=== PATIENT | female | born 1960 | race Caucasian/White ===

== ENCOUNTER → 2020-06-08 21:26 | Outpatient (CLI) | payer OTHER, SELFPAY | PROVIDERS: Visit Provider Nurse Practitioner | DX: R35.0 Frequency of micturition (principal) | CPT/HCPCS: 87086; 87088 ==

== ENCOUNTER 2022-01-18 22:33 | Outpatient (CLI) | payer OTHER, SELFPAY ==
[2022-01-18 22:48] LABS: Absolute Lymphocyte Count 2.53 X10^3/uL (0.83-4.51); Absolute Neutrophil Count 3.4 X10^3/uL (2.0-7.7); Basophil# 0.04 X10^3/uL; Basophil% 0.6 % (0-1); Eosinophil# 0.11 X10^3/uL; Eosinophils% 1.7 % (0-5); Hematocrit 38.3 % (37-47); Hemoglobin 12.7 g/dL (12.0-15.0); Lymphocyte # 2.53 X10^3/ul (0.83-4.51); Lymphocyte % 38.4 % (19-41); Mean Corp Hgb Conc 33.2 g/dL (32-36); Mean Corpuscular Hgb 29.5 pg (27.0-32.0); Mean Corpuscular Volume 89.1 fL (81-99); Mean Platelet Vol. 11.4 fl (6.2-12.0); Monocyte% 7.6 % (0-10); NRBC Flagged by Analyzer 0 % (0-5); Neutrophil # 3.38 X10^3/uL (2.7-7.7); Neutrophil % 51.4 % (47-70); Platelet Count 257 K/mm3 (150-450); RBC Distribution Width CV 13.3 % (11.6-14.6); RBC Distribution Width SD 43.2 fl (35.1-43.9); White Blood Count 6.6 K/mm3 (4.4-11.0)
[2022-01-18 22:58] LABS: ALB/GLOB Ratio 1.2 RATIO (0.9-2.4); AST(SGOT) 22 U/L (15-37); Alanine Aminotransfer ALT/SGPT 26 U/L (13-56); Albumin, Serum 4.1 g/dL (3.2-5.0); Alkaline Phosphatase 83 U/L (45-117); Anion Gap 8 (5-15); BUN 15 mg/dL (7-18); BUN/Creat Ratio 19.1 RATIO (10-20); Calcium,Total 9.5 mg/dL (8.5-10.1); Chloride 99 mmol/L (98-107); Cholesterol 254 mg/dL (200); Creatinine, Serum 0.79 mg/dL (0.55-1.02); EST Glomerular Filtration Rate 79 mL/min (>60); Est Glom Filt Rate - Afr Amer 96 mL/min (>60); Globulin 3.5 g/dL (2.2-4.2); Glucose 88 mg/dL (74-106); High Density Lipoprotein 108 mg/dL; Potassium 3.9 mmol/L (3.5-5.1); Protein, Total 7.6 g/dL (6.4-8.2); Sodium Level 133 mmol/L (136-145); Triglycerides 66 mg/dL; Very Low Density Lipoprotein 13 mg/dL (5-40)
== END 2022-01-18 23:59 | disposition home or self-care (01) ==
PROVIDERS: PCP Nurse Practitioner; Referring Provider Nurse Practitioner; Visit Provider Nurse Practitioner
DX: Z00.00 Encounter for general adult medical examination without abnormal findings (principal)
CPT/HCPCS: 80053; 80061; 85025

== ENCOUNTER 2023-09-02 20:41 | Outpatient (CLI) | payer OTHER, SELFPAY ==
[2023-09-02 21:05] LABS: Absolute Lymphocyte Count 2.73 X10^3/uL (0.83-4.51); Absolute Neutrophil Count 3.4 X10^3/uL (2.0-7.7); Basophil# 0.03 X10^3/uL; Basophil% 0.4 % (0-1); Eosinophil# 0.14 X10^3/uL; Eosinophils% 2.1 % (0-5); Hematocrit 38.4 % (37-47); Hemoglobin 12.2 g/dL (12.0-15.0); Lymphocyte # 2.73 X10^3/ul (0.83-4.51); Lymphocyte % 40.5 % (19-41); Mean Corp Hgb Conc 31.8 g/dL (32-36); Mean Corpuscular Hgb 29.6 pg (27.0-32.0); Mean Corpuscular Volume 93.2 fL (81-99); Mean Platelet Vol. 11.6 fl (6.2-12.0); Monocyte# 0.45 X10^3/uL; Monocyte% 6.7 % (0-10); NRBC Flagged by Analyzer 0 % (0-5); Neutrophil # 3.37 X10^3/uL (2.7-7.7); Platelet Count 252 K/mm3 (150-450); RBC Distribution Width CV 13.6 % (11.6-14.6); RBC Distribution Width SD 46.2 fl (35.1-43.9); Red Blood Count 4.12 M/mm3 (4.2-5.4); White Blood Count 6.7 K/mm3 (4.4-11.0)
[2023-09-02 21:17] LABS: ALB/GLOB Ratio 1.1 RATIO (0.9-2.4); AST(SGOT) 22 U/L (15-37); Alanine Aminotransfer ALT/SGPT 31 U/L (13-56); Albumin, Serum 3.9 g/dL (3.2-5.0); Alkaline Phosphatase 80 U/L (45-117); Anion Gap 3 (5-15); BUN 19 mg/dL (7-18); BUN/Creat Ratio 24.5 RATIO (10-20); Calcium,Total 9.1 mg/dL (8.5-10.1); Chloride 102 mmol/L (98-107); Cholesterol 259 mg/dL (200); Creatinine, Serum 0.78 mg/dL (0.55-1.02); EST Glomerular Filtration Rate 80 mL/min (>60); Est Glom Filt Rate - Afr Amer 96 mL/min (>60); Globulin 3.4 g/dL (2.2-4.2); Glucose 86 mg/dL (74-106); High Density Lipoprotein 107 mg/dL; Potassium 3.9 mmol/L (3.5-5.1); Protein, Total 7.3 g/dL (6.4-8.2); Sodium Level 135 mmol/L (136-145); Triglycerides 69 mg/dL; Very Low Density Lipoprotein 14 mg/dL (5-40)
--- OUTSIDE RECORDS SUMMARY | 2023-09-03 05:52 | XMS RPT_ITS ---
Author Name Auto Generated Organization [facility] Care Team Providers Care Senior Fire Protection Engineer Name Role Phone JESSY WHITLOCK Referring Unavailable JESSY WHITLOCK Primary Care Unavailable PROBLEMS DATE TYPE CONDITION / CODE ATTENDING STATUS MELVA RCE 05/06/2023 Active Screening / UNK(Unknown) NA Acti ve [facility] PROCEDURES No Procedure Records Found RESULTS CNCO Observed: 05/07/2023 9:31 AM Status: COMPLETED Source: [facility] REPOSITORY HNO ID: [id number] Author: Mammography Coordinator Service: ? Author Type: Physician Type: Letter Filed: 05/08/2023 11:31 PM Note Text: [address] [address] May 07, 2023 PID: [id number] Katelyn Hoff [address] [place] [address] Dear Ms. Hoff, We are pleased to inform you that the results of your recent breast imaging exam on 05/06/2023 are normal. Early detection of cancer is very important. We also understand recommendations regarding breast cancer screening are controversial. Please discuss with your primary care provider which strategy is best for you and whether a mammogram is right for you. Your imaging studies and report will be kept on file at [facility] as part of your permanent medical record and are available for your continuing care. Thank you for allowing us to help in meeting your health care needs. Sincerely, Dr. De Oliveira Interpreting Radiologist [facility] (Normal over 40) NORRIS SCREENING W MATTHEW Observed: 3 2:42 PM Status: F Source: [facility] REPOSITORY * * *Final Report* * * DATE OF EXAM: May 06 2023 2:42PM LDW [id number] - NORRIS SCREENING W MATTHEW / PROCEDURE REASON: Z12.31 Breast screening mammogram * * * * Physician Interpretation * * * * #[id number] - NORRIS SCREENING W MATTHEW BILATERAL DIGITAL SCREENING MAMMOGRAM TOMOSYNTHESIS WITH CAD: 05/06/2023 HISTORY: / Screening Mammogram-Patient reports NO symptoms. RESULT: TECHNIQUE: The study was acquired using full field digital technology and interpreted from soft copy. Digital Breast Tomosynthesis (DBT) images were obtained and used to assist in the interpretation of this examination. Current study was also evaluated with a Computer Aided Detection (CAD). Comparison is made to exams dated: 03/11/2022 mammogram, 02/08/2021 mammogram, 02/03/2020 mammogram, 12/11/2018 mammogram, 12/09/2017 mammogram, and 03/18/2016 mammogram - [facility]. The tissue of both breasts is extremely dense, which lowers the sensitivity of mammography. No significant masses, calcifications, or other findings are seen in either breast. There has been no significant interval change. IMPRESSION: NEGATIVE There is no mammographic evidence of malignancy. A 1 year screening mammogram is recommended. Piotr De Oliveira M.D. tab/penrad:05/07/2023 09:31:59 Platform Engineer(s): Olga Rodriguez (R)(M), [facility] letter sent: Normal over 40 Mammogram BI-RADS: 1 Negative Multiple national specialty organizations have released breast cancer screening guidelines for women at average risk for developing breast cancer - guidelines that are based on both evidence and opinion, yet differ on when to start and how often to screen for breast cancer. With representation from Breast Imaging, Internal Medicine, Women's Health, Family Medicine, and Medical/Surgical Oncology, the [facility] has carefully reviewed the data and reached the following consensus: 1) All women should engage in shared decision-making with their providers to decide when to start and how often to screen; 2) All women should have the opportunity to start screening mammography at age 40; 3) For women ages 45-55, we recommend annual screening mammograms; 4) For women ages 55 and over, we support both the transition from an annual to a biennial interval if this aligns more with patient's values and preferences, or continuation with annual screening; 5) All women should discuss with their providers when to stop screening mammograms. Molding Technician: Gil Transcribe Date/Time: May 06 2023 2:47P Dictated by : PIOTR DE OLIVEIRA MD This examination was interpreted and the report reviewed and electronically signed by: PIOTR DE OLIVEIRA MD on May 07 2023 9:31AM EST [id number] PROGRESS Observed: 05/06/2023 2:30 PM Status: COMPLETED Source: [facility] REPOSITORY [facility] ID: [id number] Author: RT Michael(R) Service: Radiology Author Type: Technologist Type: Progress Notes Filed: 05/06/2023 2:46 PM Note Text: Radiology Service Progress Note PATIENT NAME: Katelyn Hoff DATE OF SERVICE: May 06, 2023 TIME: 2:46 PM PATIENT IDENTITY VERIFICATION COMPLETED USING TWO (2) IDENTIFIERS: Name and Date of confirmed by patient verbally. FALL SCREENING: Has the patient had 2 falls in the last year or 1 fall with injury or currently using an Ambulatory Assistive Device (Walker, Cane, Wheelchair, Crutches, etc.)? No PATIENT GENDER DATA: Female. status: : No status: N/A PATIENT RELEVANT IMPLANT DATA REVIEWED: Not Applicable RADIOLOGY DEPARTMENT: Mammography PERIPHERAL IV DATA: Not applicable SIGNED BY: RT Michael(R) May 06, 2023 2:46 PM ALLERGIES No Allergies Records Found ENCOUNTERS ADMIT/DISCHARGE ACCOUNT NUMBER ADMITTING ENCOUNTER CLASS LOC ATION SOURCE 05/06/2023 [id number] [facility]LD[facility] PAYERS ENCOUNTER GUARANTOR PAYER SUBSCRIBER SOURCE 05/06/2023 Primary Insurance:[id number] Number: [id number] Date:[id number] Name:Gerry HOFFDOB: [id number] [facility] [place] [address] [facility]
[2023-09-05 10:08] LABS: Vitamin D 1,25-Dihydroxy 52.4 pg/mL (24.8-81.5)
[2023-09-05 16:22] LABS: HPV Reflexed? NOT INDICATED
== END 2023-09-02 23:59 | disposition home or self-care (01) ==
PROVIDERS: PCP Nurse Practitioner; Visit Provider Nurse Practitioner
DX: E78.5 Hyperlipidemia, unspecified (principal); E55.9 Vitamin D deficiency, unspecified; L93.0 Discoid lupus erythematosus
CPT/HCPCS: 80053; 80061; 82652; 85025; 88175; G0145

== ENCOUNTER → 2025-07-12 | Outpatient (CLI) | payer OTHER, SELFPAY ==
--- OUTSIDE RECORDS SUMMARY | 2025-07-12 22:01 | XMS RPT_ITS | CCD ---
Author Organization [facility] Care Team Providers Care Stapler Machine Name Role Phone Blayne ANTON-MICHELLE, Elizabeth Rivera Unavailable [phone] Bobby DESIGN CHECKER.SUPPLIER QUALITY MANAGER, Jessy Baltazar Primary Care Provide r Bobby DESIGN CHECKER.MICHELLE, Jessy Baltazar Primary Care Provide r Bobby SCREEN OPERATOR, Jessy Attending Unavailable Bobby SCREEN OPERATOR, Jessy Primary Care Unavailable Bobyb DESIGN CHECKER.MICHELLE, Jessy Baltazar Primary Care Provide r JESSY WHITLOCK Referring Unavailable JESSY WHITLOCK Primary Care Unavailable JESSY WHITLOCK Primary Care Unavailable Allergies Allergy Classification Reported Allergen(s) Allergy Type Date of Onset Reaction(s) Facility (1 source) Ibuprofen Drug Allergy 5 does not remember reaction [facility] Work Phone: (1 source) Amoxicillin Drug Allergy 1 [facility] Repository (1 source) Clavulanate Drug Allergy 1 [facility] (1 source) Ibuprofen Drug Allergy 0 [facility] Medications Completed/Discontinued Medications Medication Drug Class(es) Dates Sig (Normalized) Sig (Original) ascorbic acid 500 mg oral tablet (1 source) Vitamin C Start: 5 VITAMIN C 500 MG TABS 2 tablets once daily ASCORBIC ACID 30290181025 Niki Landaverde calcium carbonate 1500 mg oral tablet (1 source) Start: 5 CALTRATE 600 TABLET 1 tablet twice daily CALCIUM CARBONATE TABS [id number] Niki Landaverde methylPREDNISolone 4 mg oral tablet (1 source) Corticosteroid Start: 9 End: 9 take 4 mg by mouth once daily MEDROL 4 MG TBPK Take by mouth daily as directed METHYLPREDNISOLONE [id number] Elizabeth Cisneros DESIGN CHECKER-SUPPLIER QUALITY MANAGER naproxen sodium 220 mg oral tablet (1 source) Nonsteroidal Anti-inflammatory Drug Start: 5 ALEVE 220 MG TABS 1 tablet as needed NAPROXEN SODIUM [id number] Niki Landaverde vitamin e 400 unt oral capsule (1 source) Start: 9 E-400 400 UNIT CAPS take 1 capsule daily VITAMIN E [id number] Elizabeth Cisneros DESIGN CHECKER-SUPPLIER QUALITY MANAGER Problems Active Problems Problem Classification Problem Date Documented Date Episodic/Chronic Disorders of lipid metabolism (1 source) Hyperlipidemia, unspecified; Translations: [Hyperlipidemia, unspecified] Onset: 01-01-2024 Chronic Melanomas of skin (1 source) 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; Translations: [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, including hip] Onset: 12-05-2016 12-05-2016 Chronic Other screening for suspected conditions (not mental disorders or infectious disease) (1 source) Encounter for screening mammogram for malignant neoplasm of breast; Translations: [Encounter for screening mammogram for malignant neoplasm of breast] Onset: 06-15-2025 Episodic Spondylosis; intervertebral disc disorders; other back problems (1 source) Degeneration of lumbar intervertebral disc; Translations: [Other intervertebral disc degeneration, lumbar region] Onset: 07-29-2017 07-29-2017 Chronic Past or Other Problems Problem Classification Problem Date Documented Da te Episodic/Chronic Other non-traumatic joint disorders (1 source) Hip pain; Translations: [Pain in right hip] Onset: 10-23-2015 10-23-2015 Episodic Spondylosis; intervertebral disc disorders; other back problems (2 sources) Disorder of sacrum; Translations: [Spinal stenosis of lumbar region] Onset: 07-29-2017 10-25-2019 Episodic Unclassified (1 source) Problem Results Test Name Value Interpretation Reference Range Facility [facility] Allison 06-15 [facility] * * *Final Report* * * DATE OF EXAM: Jun 15 2025 3:55PM LDW 0582 - [facility]CRE[facility]ING [facility] MATTHEW / PROCEDURE REASON: Z12.31 Breast screen by mammogram * * * * Physician Interpretation * * * * [address] [address] #[id number] - [facility] HISTORY: 65 year-old patient presents for screening. No current complaints. Patient states no personal history of breast cancer. COMPARISON STUDIES: The present examination has been compared to prior imaging studies dated 03/11/2022 (mammogram), 05/06/2023 (mammogram) and 05/11/2024 (mammogram). MAMMOGRAM TECHNIQUE: The study was acquired using full field digital technology and interpreted from soft copy. Digital Breast Tomosynthesis (DBT) images were obtained and used to assist in the interpretation of this examination. Computer-aided detection was utilized by the radiologist in the interpretation of this examination. MAMMOGRAM FINDINGS: The breasts are heterogeneously dense, which may obscure small masses. No suspicious masses, calcifications or other abnormalities are seen in either breast. There are no significant interval changes. IMPRESSION: There is no mammographic evidence of malignancy in either breast. Routine screening mammogram is recommended. Annual mammogram will be due in 1 year. BI-RADS Category 1: Negative RISK: Based on the Tyrer-Cuzick (TC) risk assessment model, this patient has a 6.3% lifetime risk of developing breast cancer, meaning they are at average risk for developing breast cancer. However, this is only an estimate based on available history provided on the patient's questionnaire. We encourage all patients to talk with their providers about these results, further recommendations for managing breast health, and appropriate supplemental screening options if the patient has dense breast tissue. Interpreting Radiologist: Shilpa Castillo M.D. Resident/Fellow: Alfonso Gr D.O. Electronically signed on: 06/17/2025 Senior Network Security Architect: LIZZETTE Transcribe Date/Time: Jun 15 2025 3:28P Dictated by : ALFONSO GR, DO This examination was interpreted and the report reviewed and electronically signed by: SHILPA CASTILLO MD on Jun 17 2025 8:09AM EST [id number] Normal [facility] BD DXA - AXIAL SKELETONon BD DXA - AXIAL SKELETON * * *Final Report* * * DATE OF EXAM: Aug 11 2024 2:09PM LDX 0804 - BD DXA - AXIAL SKELETON - LEFT / PROCEDURE REASON: Z00.00 Encounter for general adult medical examination without abnormal findings * * * * Physician Interpretation * * * * EXAMINATION: DXA BONE DENSITOMETRY BD DXA - AXIAL SKELETON PATIENT DEMOGRAPHICS: Age: 64 years, Gender: Female SCANNER INFORMATION: DXA Model: [facility] [employer] [id number] Date Scanned: 08/11/2024 2:09 PM CLINICAL HISTORY: DIAGNOSTIC Z00.00 Encounter for general adult medical examination without abnormal findings. Postmenopausal. RISK FACTORS FOR OSTEOPOROSIS AND ASSOCIATED FRACTURES REPORTED BY THIS PATIENT: Please refer to Bone Health Questionnaire in the EMR CURRENT THERAPY: Please refer to Bone Health Questionnaire in the EMR TECHNICAL LIMITATIONS: Degenerative disease of the spine RESULTS: Lumbar spine (L1, L2, L3, L4): 0.770 g/cm2, T-score -3.4, Z-score -1.6 Left Femoral Neck: 0.683 g/cm2, T-score -2.6, Z-score -0.9 Left Total Hip: 0.745 g/cm2, T-score -2.1, Z-score -0.7 No comparison data - the patient has not had a previous bone density in the [facility] or the previous bone density was performed on a different DXA machine (new, updated model or different location) within the [facility]. VERTEBRAL FRACTURE ASSESSMENT Not performed. TRABECULAR BONE ASSESSMENT TBS not performed: not ordered IMPRESSION: THE LOWEST T-SCORE IS -3.4 IN THE RIGHT HIP 1) DIAGNOSIS (based on BMD alone): OSTEOPOROSIS Caution: Medical conditions other than osteoporosis may cause low bone density, such as osteomalacia or renal osteodystrophy. Clinical correlation is necessary. 2) FRACTURE RISK (based on FRAX): 10-year absolute fracture risk: - major osteoporotic fracture = 13.0 % - hip fracture = 2.9 % - A diagnosis of Osteoporosis, a 10 year probability of hip fracture greater than or equal to 3% or a 10 year probability of any major osteoporosis-related fracture greater than or equal to 20% should be considered for treatment. - DXA scanner generated FRAX calculations may slightly differ from online FRAX calculations due to differences in software versions. - All recommendations and calculations are to be considered as guidelines and should not replace sound clinical judgement - Caution: Fracture risk may be increased independent of BMD in patients with corticosteroid use, age greater than 65 years, or a history of prior fragility fracture. RECOMMENDATIONS: Follow-up in 2 years or as clinically indicated. Patients that are taking corticosteroids, are transplant recipients or have hyperparathyroidism should have annual follow-up. Follow-up scans should always be done on the same machine for accurate comparison. FOR MORE INFORMATION ABOUT DIAGNOSIS AND TREATMENT: [facility] for Osteoporosis and Metabolic Bone Disease:? www.ccf.org/arthritis /osteo National Osteoporosis Foundation:? www.nof.org International Society of Clinical Densitometry www.iscd.org Senior Network Security Architect: TIFFANY Transcribe Date/Time: Aug 14 2024 10:15P Dictated by : HENRIK TSANG MD This examination was interpreted and the report reviewed and electronically signed by: HENRIK TSANG MD on Aug 14 2024 10:17PM EST [id number] N -3.4 Normal [facility] PAP IG w/Reflex HR HPV Aptim aon 09-05-2023 ADEQ Comment Normal . [facility] Comment on above: Order Comment: Speci men Comment: [id number] Specimen Comment: Source.............Vagina Specimen Comment: Other..............Post Menopausal Specimen Comment: No. of containers..01 ThinPrep Vial Result Comment: Sati sfactory for evaluation. Endocervical component may not be distinguished in cases of atrophy. Performed By: #### L 7400.0357 #### [facility] [address] [place], [place], [id number] COMM . Normal . [facility] Comment on above: Order Comment: Speci men Comment: [id number] Specimen Comment: Source.............Vagina Specimen Comment: Other..............Post Menopausal Specimen Comment: No. of containers..01 ThinPrep Vial Performed By: #### L 7400.0357 #### [facility] [address] [place], [place], [id number] COMMENT Comment Normal . [facility] Comment on above: Order Comment: Speci men Comment: [id number] Specimen Comment: Source.............Vagina Specimen Comment: Other..............Post Menopausal Specimen Comment: No. of containers..01 ThinPrep Vial Result Comment: This liquid based ThinPrep(R) pap test was screened with the use of an image guided system. Performed By: #### L 7400.0357 #### [facility] [address] [place], [place], [id number] DIAG Comment Normal . [facility] Comment on above: Order Comment: Speci men Comment: [id number] Specimen Comment: Source.............Vagina Specimen Comment: Other..............Post Menopausal Specimen Comment: No. of containers..01 ThinPrep Vial Result Comment: NEGA TIVE FOR INTRAEPITHELIAL LESION OR MALIGNANCY. CELLULAR CHANGES ASSOCIATED WITH ATROPHY ARE PRESENT. Performed By: #### L 7400.0357 #### [facility] [address] [place], [address] HPV RFLX Comment Normal . [facility] Comment on above: Order Comment: Speci men Comment: [id number] Specimen Comment: Source.............Vagina Specimen Comment: Other..............Post Menopausal Specimen Comment: No. of containers..01 ThinPrep Vial Result Comment: The HPV DNA reflex criteria were not met with this specimen result therefore, no HPV testing was performed. Performed at: [address] [id number] [employer] Pen Cartridge Tester: Radha Meadows MD, Phone: [phone] Performed By: #### L 7400.0357 #### [facility] [address] [place], [place], [address] PAPSMR Comment Normal . [facility] Comment on above: Order Comment: Speci men Comment: [id number] Specimen Comment: Source.............Vagina Specimen Comment: Other..............Post Menopausal Specimen Comment: No. of containers..01 ThinPrep Vial Result Comment: The Pap smear is a screening test designed to aid in the detection of premalignant and malignant conditions of the uterine cervix. It is not a diagnostic procedure and should not be used as the sole means of detecting cervical cancer. Both false-positive and false-negative reports do occur. Performed By: #### L 7400.0357 #### [facility] [address] [place], [place], [id number] PERFORM Comment Normal . [facility] Comment on above: Order Comment: Speci men Comment: [id number] Specimen Comment: Source.............Vagina Specimen Comment: Other..............Post Menopausal Specimen Comment: No. of containers..01 ThinPrep Vial Result Comment: Cris Rodriguez, Orthopedic Brace Maker (ASCP) Performed By: #### Goivanny 7400.0357 #### [facility] [address] [place], [place], [address] Vitamin D 1,25-Dihydroxyon 1 VIT D 1,25 DIHY 52.4 pg/mL Normal 24.8-81.5 [facility] Comment on above: Result Comment: Perf ormed at: [facility] [address] [id number] [employer] Tester: Micheal Chao MD, Phone: [phone] Performed By: #### L 100.0100, L500.4050, L500.4100, L3300.8260 #### [facility] [address] [place], [place], [address] CBC W/Diff, Automatedon 10-0 Absolute Lymph 2.73 X10 3/uL Normal 0.83-4.51 [facility] Comment on above: Performed By: #### L 100.0100, L500.4050, L500.4100, L3300.0960 #### [facility] [address] [place], [address] Absolute Neut 3.4 X10 3/uL Normal 2.0-7.7 [facility] Comment on above: Performed By: #### L 100.0100, L500.4050, L500.4100, L3300.0960 #### [facility] [address] [place], [address] Basophils/100 WBC (Bld) 0.4 % Normal 0-1 [facility] Comment on above: Performed By: #### L 100.0100, L500.4050, L500.4100, L3300.0960 #### [facility] [address] [place], [address] Eosinophils/100 WBC (Bld) 2.1 % Normal 0-5 [facility] Comment on above: Performed By: #### L 100.0100, L500.4050, L500.4100, L3300.0960 #### [facility] [address] [place], [address] Erythrocyte distribution width (RBC) [Ratio] 13.6 % Normal 11.6-14.6 [facility] Comment on above: Performed By: #### L 100.0100, L500.4050, L500.4100, L3300.0960 #### [facility] [address] [place], [address] Hematocrit (Bld) [Volume fraction] 38.4 % Normal 37-47 [facility] Comment on above: Performed By: #### L 100.0100, L500.4050, L500.4100, L3300.0960 #### [facility] [address] [place], [address] Hemoglobin (Bld) [Mass/Vol] 12.2 g/dL Normal 12.0-15.0 [facility] Comment on above: Performed By: #### L 100.0100, L500.4050, L500.4100, L3300.0960 #### [facility] [address] [place], [address] IG% 0.300 Normal 0.0-0.9 [facility] Comment on above: Result Comment: IG% - Immature Granulocytes (promyelocytes, myelocytes and metamyelocytes) > 1% indicates that a LEFT SHIFT is Present. Performed By: #### L 100.0100, L500.4050, L500.4100, L3300.0960 #### [facility] [address] [place], [address] Lymphocytes/100 WBC (Bld) 40.5 % Normal 19-41 [facility] Comment on above: Performed By: #### L 100.0100, L500.4050, L500.4100, L3300.0960 #### [facility] [address] [place], [address] MCH (RBC) [Entitic mass] 29.6 pg Normal 27.0-32.0 [facility] Comment on above: Performed By: #### L 100.0100, L500.4050, L500.4100, L3300.0960 #### [facility] [address] [place], [address] MCHC (RBC) [Mass/Vol] 31.8 g/dL Low 32-36 [facility] Comment on above: Performed By: #### L 100.0100, L500.4050, L500.4100, L3300.0960 #### [facility] [address] [place], [address] MCV (RBC) [Entitic vol] 93.2 fL Normal 81-99 [facility] Comment on above: Performed By: #### L 100.0100, L500.4050, L500.4100, L3300.0960 #### [facility] [address] [place], [address] Monocytes/100 WBC (Bld) 6.7 % Normal 0-10 [facility] Comment on above: Performed By: #### L 100.0100, L500.4050, L500.4100, L3300.0960 #### [facility] [address] [place], [address] Neutrophils/100 WBC (Bld) 50.0 % Normal 47-70 [facility] Comment on above: Performed By: #### L 100.0100, L500.4050, L500.4100, L3300.0960 #### [facility] [address] [place], [address] Nucleated RBC (Bld) [#/Vol] 0 10*3/uL Normal 0-5 [facility] Comment on above: Performed By: #### L 100.0100, L500.4050, L500.4100, L3300.0960 #### [facility] [address] [place], [address] Platelet mean volume (Bld) [Entitic vol] 11.6 fL Normal 6.2-12.0 [facility] Comment on above: Performed By: #### L 100.0100, L500.4050, L500.4100, L3300.0960 #### [facility] [address] [place], [address] Platelets (Bld) [#/Vol] 252 10*3/uL Normal 150-450 [facility] Comment on above: Performed By: #### L 100.0100, L500.4050, L500.4100, L3300.0960 #### [facility] [address] [place], [address] RBC (Bld) [#/Vol] 4.12 10*6/uL Low 4.2-5.4 [facility] Comment on above: Performed By: #### L 100.0100, L500.4050, L500.4100, L3300.0960 #### [facility] [address] [place], [address] RDW SD 46.2 fl High 35.1-43.9 [facility] Comment on above: Performed By: #### L 100.0100, L500.4050, L500.4100, L3300.0960 #### [facility] [address] [place], [address] WBC (Bld) [#/Vol] 6.7 10*3/uL Normal 4.4-11.0 [facility] Comment on above: Performed By: #### L 100.0100, L500.4050, L500.4100, L3300.0960 #### [facility] [address] [place], [address] Comprehensive Metabolic Prof [facility] 09-02-2023 Albumin [Mass/Vol] 3.9 g/dL Normal 3.2-5.0 [facility] Comment on above: Performed By: #### L 100.0100, L500.4050, L500.4100, L3300.0960 #### [facility] [address] [place], [address] Albumin/Globulin [Mass ratio] 1.1 {ratio} Normal 0.9-2.4 [facility] Comment on above: Performed By: #### L 100.0100, L500.4050, L500.4100, L3300.0960 #### [facility] [address] [place], [address] ALK P 80 U/L Normal 45-117 [facility] Comment on above: Performed By: #### L 100.0100, L500.4050, L500.4100, L3300.0960 #### [facility] [address] [place], [address] ALT [Catalytic activity/Vol] 31 U/L Normal 13-56 [facility] Comment on above: Performed By: #### L 100.0100, L500.4050, L500.4100, L3300.0960 #### [facility] [address] [place], [address] AST [Catalytic activity/Vol] 22 U/L Normal 15-37 [facility] Comment on above: Performed By: #### L 100.0100, L500.4050, L500.4100, L3300.0960 #### [facility] [address] [place], [address] Bilirubin [Mass/Vol] 0.40 mg/dL Normal 0.20-1.00 [facility] Comment on above: Result Comment: For patients on eltrombopag therapy, use of Dimension Crum Lynne TBIL is not recommended. Performed By: #### L 100.0100, L500.4050, L500.4100, L3300.0960 #### [facility] [address] [place], [address] BUN/CRE 24.5 RATIO High 10-20 [facility] Comment on above: Performed By: #### L 100.0100, L500.4050, L500.4100, L3300.0960 #### [facility] [address] [place], [address] CA,Total 9.1 mg/dL Normal 8.5-10.1 [facility] Comment on above: Performed By: #### L 100.0100, L500.4050, L500.4100, L3300.0960 #### [facility] [address] [place], [address] Chloride [Moles/Vol] 102 mmol/L Normal 98-107 [facility] Comment on above: Performed By: #### L 100.0100, L500.4050, L500.4100, L3300.0960 #### [facility] [address] [place], [address] CO2 [Moles/Vol] 30.0 mmol/L Normal 21.0-32.0 [facility] Comment on above: Performed By: #### L 100.0100, L500.4050, L500.4100, L3300.0960 #### [facility] [address] [place], [address] Creatinine [Mass/Vol] 0.78 mg/dL Normal 0.55-1.02 [facility] Comment on above: Result Comment: The validity of the calculated GFR GFRAA in patients over 70 years has not been determined. Clinical correlation is essential. Performed By: #### L 100.0100, L500.4050, L500.4100, L3300.0960 #### [facility] [address] [place], [address] EST GFR - AA 96 mL/min Normal >60 [facility] Comment on above: Result Comment: Afri can Cymraes GFR Calc Performed By: #### L 100.0100, L500.4050, L500.4100, L3300.0960 #### [facility] [address] [place], [address] GAP 3 Low 5-15 [facility] Comment on above: Performed By: #### L 100.0100, L500.4050, L500.4100, L3300.0960 #### [facility] [address] [place], [address] GFR/1.73 sq M.predicted among non-blacks MDRD (S/P/Bld) [Vol rate/Area] 80 mL/min/{1.73_m2} Normal >60 [facility] Comment on above: Result Comment: Non- GFR Calc Performed By: #### L 100.0100, L500.4050, L500.4100, L3300.0960 #### [facility] [address] [place], [address] Globulin (S) [Mass/Vol] 3.4 g/dL Normal 2.2-4.2 [facility] Comment on above: Performed By: #### L 100.0100, L500.4050, L500.4100, L3300.0960 #### [facility] [address] [place], [address] Glucose [Mass/Vol] 86 mg/dL Normal 74-106 [facility] Comment on above: Performed By: #### L 100.0100, L500.4050, L500.4100, L3300.0960 #### [facility] [address] [place], [address] Potassium [Moles/Vol] 3.9 mmol/L Normal 3.5-5.1 [facility] Comment on above: Performed By: #### L 100.0100, L500.4050, L500.4100, L3300.0960 #### [facility] [address] [place], [address] Sodium [Moles/Vol] 135 mmol/L Low 136-145 [facility] Comment on above: Performed By: #### L 100.0100, L500.4050, L500.4100, L3300.0960 #### [facility] [address] [place], [address] T PROT 7.3 g/dL Normal 6.4-8.2 [facility] Comment on above: Performed By: #### L 100.0100, L500.4050, L500.4100, L3300.0960 #### [facility] [address] [place], [address] Urea nitrogen [Mass/Vol] 19 mg/dL High 7-18 [facility] Comment on above: Performed By: #### L 100.0100, L500.4050, L500.4100, L3300.0960 #### [facility] [address] [place], [address] Lipid Profileon 09-02-2023 Cholesterol [Mass/Vol] 259 mg/dL High 200 [facility] Comment on above: Result Comment: <200 mg/dL Desirable 200-240 mg/dL Borderline >240 mg/dL High Risk Performed By: #### L 100.0100, L500.4050, L500.4100, L3300.0960 #### [facility] [address] [place], [address] Cholesterol in HDL [Mass/Vol] 107 mg/dL Normal [facility] Comment on above: Result Comment: The drugs N-Acetylcysteine and Metamizole may falsely depress this assay. Reference Range HDL <40 mg/dL Low HDL Cholesterol HDL >or= 60 mg/dL High HDL Cholesterol Performed By: #### L 100.0100, L500.4050, L500.4100, L3300.0960 #### [facility] [address] [place], [address] Cholesterol in LDL [Mass/Vol] 138 mg/dL High 0-130 [facility] Comment on above: Performed By: #### L 100.0100, L500.4050, L500.4100, L3300.0960 #### [facility] [address] [place], [address] Cholesterol in VLDL [Mass/Vol] 14 mg/dL Normal 5-40 [facility] Comment on above: Performed By: #### L 100.0100, L500.4050, L500.4100, L3300.0960 #### [facility] [address] [place], [address] Triglyceride [Mass/Vol] 69 mg/dL Normal [facility] Comment on above: Result Comment: The drugs N-Acetylcysteine and Metamizole may falsely depress this assay. Serum Triglycerides Reference Interval Normal <150 mg/dL Borderline high 150 - 199 mg/dL High 200 - 499 mg/dL Very High > or = 500 mg/dL Performed By: #### L 100.0100, L500.4050, L500.4100, L3300.0960 #### [facility] [address] [place], [address] [facility] SCREENINGon 03-11-2022 [facility] SCREENING * * *Final Report* * * DATE OF EXAM: Mar 11 2022 2:26PM SHANNON 0581 - [facility] SCREENING / PROCEDURE REASON: Z2.31 MAMMOGRAM SCREENING * * * * Physician Interpretation * * * * #[id number] - [facility] SCREENING BILATERAL DIGITAL SCREENING MAMMOGRAM WITH CAD: 03/11/2022 HISTORY: Z2.31 Mammogram Screening / Screening Mammogram-Patient reports NO symptoms. RESULT: TECHNIQUE: The study was acquired using full field digital technology and interpreted from soft copy. Current study was also evaluated with a Computer Aided Detection (CAD). Comparison is made to exams dated: 02/08/2021 mammogram, 02/03/2020 mammogram, 12/11/2018 mammogram, 12/09/2017 mammogram, and 03/18/2016 mammogram - [facility]. The tissue of both breasts is heterogeneously dense. This may lower the sensitivity of mammography. No significant masses, calcifications, or other findings are seen in either breast. There has been no significant interval change. IMPRESSION: NEGATIVE There is no mammographic evidence of malignancy. A 1 year screening mammogram is recommended. Cipriano Nicole M.D. fa/penrad:03/12/2022 15:17:18 Animal Care Supervisor(s): RT Derian(R)(M), [facility] letter sent: Normal over 40 Mammogram BI-RADS: [...] Health, Family Medicine, and Medical/Surgical Oncology, the [facility] has carefully reviewed the data and reached [...] their providers when to stop screening mammograms. Senior Network Security Architect: Gil Transcribe Date/Time: Mar 11 2022 2:17P Dictated by : CIPRIANO NICOLE MD This examination was interpreted and the report reviewed and electronically signed by: CIPRIANO NICOLE MD on Mar 12 2022 3:17PM EST [id number] [facility] XR DIGIT 3V FRONTAL/LAT/OBL LTon 06-21-2021 XR DIGIT 3V FRONTAL/LAT/OBL LT * * *Final Report* * * DATE OF EXAM: Jun 21 2021 12:50PM MDX [id number] - XR DIGIT 3V FRONTAL/LAT/OBL LT / PROCEDURE REASON: 3rd finger puncture wound foreign body * * * * Physician Interpretation * * * * HISTORY: 61-YEAR-OLD FEMALE WITH 3rd finger puncture wound foreign body. Left 3rd digit pain/ redness. TECHNIQUE: XR DIGIT 3V FRONTAL/LAT/OBL LT Laterality: LEFT Number of different views (projections): 3 COMPARISON: None RESULT: Bones and joints of the third digit are normal in appearance. No radio opaque or radiolucent foreign bodies identified. IMPRESSION: NO ACUTE BONY ABNORMALITY AND NO FOREIGN BODY. Senior Network Security Architect: TIFFANY Transcribe Date/Time: Jun 21 2021 5:33P Dictated by : LUDMILA CARTER MD This examination was interpreted and the report reviewed and electronically signed by: LUDMILA CARTER MD on Jun 21 2021 5:34PM EST [id number] [facility] Clinical Summary: HMSPatient IDon 10-25-2019 [facility] Work Phone: Office Visit: New Complaint, Rm: 43on 10-25-2019 NEGATED: Highlighted pambone scan history of the Whole body on 09/02/2017 [facility] Work Phone: NEGATED: Highlighted rowMRI (magnetic resonance imaging) history of the Lumbar w/ contrast on 08/22/2017 [facility] Work Phone: Vital Signs Date Time Vital Sign Value Performing Clinician Facility NEGATED: Highlighted [id number] 08:29-0500 BMI (Body Mass Index) 22.76 kg/m2 Anaya Ordaz [facility] Work Phone: NEGATED: Highlighted [id number] 08:29-0500 Body weight 56.25 kg Anaya Ordaz ELECTRIC CELL TENDER [facility] Work Phone: NEGATED: Highlighted [id number] 08:29-0500 Body weight 56 kg Anaya Ordaz [facility] Work Phone: NEGATED: Highlighted [id number] 08:29-0500 BP Diastolic 78 mm[Hg] Anaya Ordaz [facility] Work Phone: NEGATED: Highlighted [id number] 08:29-0500 BP Systolic 116 mm[Hg] Anaya Ordaz [facility] Work Phone: NEGATED: Highlighted [id number] 08:29-0500 Heart rate 2+ Anaya Ordaz [facility] Work Phone: NEGATED: Highlighted [id number] 08:29-0500 Height 157.48 cm Anaya Ordaz [facility] Work Phone: NEGATED: Highlighted [id number] 08:29-0500 Height 157 cm Anaya Ordaz [facility] Work Phone: NEGATED: Highlighted [id number] 08:29-0500 Pulse (Heart Rate) 71 /min Anaya Sushma AREVALO [facility] Work Phone: Encounters Encounter Date Encounter Type Care Provider Facility Start: 06-15-2025 ambulatory JESSY WHITLOCK Facil ity:[facility] Start: 06-15-2025 End: 06-15-2025 Subsequent hospital visit by physician Mammo/Bone Density [facility] Comment on above: Encounter for screen ing mammogram for malignant neoplasm of breast [Z12.31] Start: 08-11-2024 ambulatory JESSY WHITLOCK Facil ity:[facility] Start: 08-11-2024 Encounter for genera l adult medical examination without abnormal findings JESSY WHITLOCK [facility] Start: 08-11-2024 End: 08-11-2024 Subsequent hospital visit by physician Mammo/Bone Density [facility] Comment on above: Encounter for genera l adult medical examination without abnormal findings [Z00.00] Start: 05-12-2024 Documentation procedure Mammog farrah Coordinator [facility] ANCILLARY AREA NOT LISTED Start: 05-12-2024 Letter encounter Mammography Coordinator [facility] ANCILLARY AREA NOT LISTED Start: 05-11-2024 End: 05-11-2024 Subsequent hospital visit by physician Mammo/Bone Density [facility] Comment on above: Encounter for screen ing mammogram for malignant neoplasm of breast [Z12.31] Start: 09-02-2023 End: 09-03-2023 ambulatory Jessy Whitlock SCREEN OPERATOR Facility:[facility] Start: 05-06-2023 End: 05-06-2023 Subsequent hospital visit by physician Mammo/Bone Density [facility] Comment on above: Screening Start: 03-12-2022 Documentation procedure Mammog farrah Coordinator [facility] Start: 03-12-2022 Letter encounter Mammography Coordinator [facility] Start: 03-11-2022 End: 03-11-2022 Subsequent hospital visit by physician Screen/Diagnostic Mammo [facility] Work Phone: Mammography Comment on above: Encounter for screen ing mammogram for malignant neoplasm of breast [Z12.31] Start: 10-25-2019 End: 10-25-2019 Patient encounter procedure Elizabeth Cisneros DESIGN CHECKER-SUPPLIER QUALITY MANAGER Work Phone: [facility] Work Phone: Start: 10-25-2019 End: 10-25-2019 Pt evaluation Elizabeth Cisneros DESIGN CHECKER-SUPPLIER QUALITY MANAGER Work Phone: [facility] Work Phone: Procedures Date Procedure Procedure Detail Performing Clinician Start: 03-11-2022 Mammography Mammograph y Coordinator Start: 02-08-2021 Mammography [facility] Work Phone: Start: 10-25-2019 End: 10-25-2019 Blood pressure within normal parameters - no follow-up required Elizabeth Cisneros DESIGN CHECKER-SUPPLIER QUALITY MANAGER Work Phone: Start: 10-25-2019 End: 10-25-2019 BMI documented within normal parameters - no follow-up plan is required Elizabeth Cisneros DESIGN CHECKER-SUPPLIER QUALITY MANAGER Work Phone: Start: 10-25-2019 End: 10-25-2019 Documentation of current medications Elizabeth Cisneros DESIGN CHECKER-SUPPLIER QUALITY MANAGER Work Phone: Start: 10-25-2019 End: 10-25-2019 Pain assessment documented as positive - follow-up documented Elizabeth Cisneros DESIGN CHECKER-SUPPLIER QUALITY MANAGER Work Phone: Start: 10-25-2019 End: 10-25-2019 Radex spine lumbosacral minimum 4 views Elizabeth Cisneros DESIGN CHECKER-SUPPLIER QUALITY MANAGER Work Phone: Start: 10-25-2019 End: 10-25-2019 Tobacco non-user Elizabeth Cisneros DESIGN CHECKER-SUPPLIER QUALITY MANAGER Work Phone: Start: 03-13-2015 Colonoscopy [facility] Work Phone: NEGATED: Highlighted rowStart: 10-25-2019 End: 10-25-2019 Documentation of current medications Anaya Ordaz LPN Plan of Treatment Date Care Activity Detail Author Start: 2035 RSV Vaccine (1 - 1-dose 75+ series) RSV Vaccine (1 - 1-dose 75+ series) [facility] Start: 08-01-2025 Influenza vaccination Influenza Vaccine (#1) [facility] Start: 2025 Advance Directive Discussion Advance Directive Discussion [facility] Start: 05-11-2025 Screening for malignant neoplasm of breast Mammogram Screening [facility] Start: 03-13-2025 Colonoscopy COLONOSCOPY [facility] Start: 03-13-2025 COLORECTAL CANCER SCREENING COLORECTAL CANCER SCREENING [facility] Start: 03-13-2025 Screening for malignant neoplasm of colon [facility] Start: 12-01-2024 Medicare Advantage Annual Wellness Visit Medicare Advantage Annual Wellness Visit [facility] Start: 08-01-2024 Covid-19 Vaccine ( season) Covid-19 Vaccine ( season) [facility] Start: 08-01-2024 Covid-19 Vaccine ( season) Covid-19 Vaccine ( season) [facility] Start: 08-01-2024 Influenza vaccination [facility] Start: 05-06-2024 Screening for malignant neoplasm of breast Mammogram Screening [facility] Start: 12-01-2023 Behavioral Health Screening Behavioral Health Screening [facility] Start: 08-01-2023 Covid-19 Vaccine ( season) Covid-19 Vaccine ( season) [facility] Start: 08-01-2023 Influenza vaccination [facility] Start: 03-11-2023 Mammography MAMMOGRAM [facility] Start: 12-01-2022 DEPRESSION ASSESSMENT DEPRESSION ASSESSMENT [facility] Start: 08-01-2022 Influenza vaccination INFLUENZA (Season Ended) [facility] Start: 02-08-2022 Mammography MAMMOGRAM [facility] Start: 2020 RSV Vaccine (1 - 1-dose 60+ series) RSV Vaccine (1 - 1-dose 60+ series) [facility] Start: 10-25-2019 End: 10-25-2019 Appointment Appointment [facility] Work Phone: Start: 10-25-2019 End: 10-25-2019 EMG/NCT bilateral lower extremity EMG/NCT bilateral lower extremity [facility] Work Phone: Start: 12-13-2013 DIABETES SCREEN DIABETES SCREEN [facility] Start: 12-13-2013 Diabetes Screening Diabetes Screening [facility] Start: 2010 Pneumococcal Vaccine: 50+ (1 of 1 - PCV) Pneumococcal Vaccine: 50+ (1 of 1 - PCV) [facility] Start: 2010 SHINGRIX VACCINE (1 of 2) SHINGRIX VACCINE (1 of 2) [facility] Start: 2005 COLOGUARD (FIT-DNA) COLOGUARD (FIT-DNA) [facility] Start: [address] COLONOGRAPHY [facility] Start: 2005 FECAL OCCULT BLOOD FECAL OCCULT BLOOD [facility] Start: 2005 Lipid panel Lipid Screening [facility] Start: 2005 LIPID SCREEN LIPID SCREEN [facility] Start: 2005 Screening for malignant neoplasm of colon [facility] Start: 2005 SIGMOIDOSCOPY SIGMOIDOSCOPY [facility] Start: 1990 HPV TESTING HPV TESTING [facility] Start: 1981 PAP TESTING PAP TESTING [facility] Start: 1981 Screening for malignant neoplasm of cervix Cervical Cancer Screening [facility] Start: 1979 Urine microalbumin profile [facility] Start: 1978 Anxiety Screening Anxiety Screening [facility] Start: 1978 Depression Screening Depression Screening [facility] Start: 1978 HEPATITIS C SCREENING HEPATITIS C SCREENING [facility] Start: 1978 Hepatitis C screening Hepatitis C Screening [facility] Start: 1978 HIV SCREENING HIV SCREENING [facility] Start: 1978 HIV screening HIV Screening [facility] Start: 1972 Adult depression screening assessment DEPRESSION SCREENING [facility] Start: 1965 COVID-19 VACCINE (1) COVID-19 VACCINE (1) [facility] Start: 1960 COVID-19 VACCINE (#1) COVID-19 VACCINE (#1) [facility] Payers Date Payer Category Payer Medicare (Managed Care) MMO JENN DVANTAGE HMO [id number] 2025 Unknown [id number] 2023 Self-pay 2023 Unknown DENA BAKER GERI [id number] 2023-Present [phone] [address] [place] [address] Indemnity [id number] 2023 Unknown [id number] 2021 Private Health Insurance [id number] Unknown [id number] Social History Date Type Detail Facility Start: 10-25-2019 End: 10-25-2019 Assertion Unknown if ever smoked [facility] Work Phone: Start: 1960 Sex Assigned At Not on file [facility] Start: 03-01-2022 End: 03-11-2022 Exposure to SARS-CoV-2 (event) Not sure [facility] Start: 05-11-2024 History of Social function [facility] Start: 05-11-2024 Area Deprivation Index [facility] National Score (1-100), lower number is lower risk 59 [facility] NEGATED: Highlighted rowStart: 10-25-2019 End: 10-25-2019 Details of drug misuse behavior Details of drug misuse behavior [facility] Work Phone: Clinical Notes 06-21-2021 to 06-15-2025 Luke Lynn RT(R) - 06/15/2025 3:30 PM Luke Solomon RT(R) - 08/11/2024 2:00 PM Alvin Fuentes, Mammography - 05/12/2024 4:06 PM Emerson Mercer, CT - 03/11/2022 2:20 PM EDT Note Date & Type Note Facility 06-15-2025 History of Presen t illness Narrative Radiology Service Progress Note PATIENT NAME: Katelyn Galvin DATE OF SERVICE: June 15, 2025 TIME: 3:25 PM PATIENT IDENTITY VERIFICATION COMPLETED USING TWO (2) IDENTIFIERS: Name and Date of confirmed by patient verbally. FALL SCREENING: Has the patient had 2 falls in the last year or 1 fall with injury or currently using an Ambulatory Assistive Device (Walker, Cane, Wheelchair, Crutches, etc.)? No PATIENT GENDER DATA: Assigned female at . status: : No status: N/A PATIENT RELEVANT IMPLANT DATA REVIEWED: Not Applicable PATIENT PRESENTS WITH AN IMPLANTABLE OR ATTACHED DATA WAREHOUSING MANAGER: No RADIOLOGY DEPARTMENT: Mammography PERIPHERAL IV DATA: Not applicable SIGNED BY: BRANDY Rodriguez) June 15, 2025 3:25 PM documented in this encounter [facility] 06-15-2025 Note HNO ID: [id number] Author: LUKE LYNN RT(R) Service: Radiology Author Type: Technologist Type: Progress Notes Filed: 06/15/2025 15:25 Note Text: Radiology Service Progress Note PATIENT NAME: Katelyn Galvin DATE OF SERVICE: June 15, 2025 TIME: 3:25 PM PATIENT IDENTITY VERIFICATION COMPLETED USING TWO (2) IDENTIFIERS: Name and Date of confirmed by patient verbally. FALL SCREENING: Has the patient had 2 falls in the last year or 1 fall with injury or currently using an Ambulatory Assistive Device (Walker, Cane, Wheelchair, Crutches, etc.)? No PATIENT GENDER DATA: Assigned female at . status: : No status: N/A PATIENT RELEVANT IMPLANT DATA REVIEWED: Not Applicable PATIENT PRESENTS WITH AN IMPLANTABLE OR ATTACHED DATA WAREHOUSING MANAGER: No RADIOLOGY DEPARTMENT: Mammography PERIPHERAL IV DATA: Not applicable SIGNED BY: BRANDY Rodriguez) June 15, 2025 3:25 PM [facility] 08-11-2024 History of Presen t illness Narrative Radiology Service Progress Note PATIENT NAME: Katelyn Galvin DATE OF SERVICE: August 11, 2024 TIME: 2:07 PM PATIENT IDENTITY VERIFICATION COMPLETED USING TWO (2) IDENTIFIERS: Name and Date of confirmed by patient verbally. FALL SCREENING: Has the patient had 2 falls in the last year or 1 fall with injury or currently using an Ambulatory Assistive Device (Walker, Cane, Wheelchair, Crutches, etc.)? No PATIENT GENDER DATA: Female. status: : No status: N/A PATIENT RELEVANT IMPLANT DATA REVIEWED: Not Applicable PATIENT PRESENTS WITH AN IMPLANTABLE OR ATTACHED DATA WAREHOUSING MANAGER: No RADIOLOGY DEPARTMENT: Bone Density PERIPHERAL IV DATA: Not applicable SIGNED BY: BRANDY Rodriguez) August 11, 2024 2:07 PM documented in this encounter [facility] 08-11-2024 Note HNO ID: [id number] Author: LUKE LYNN RT(R) Service: Radiology Author Type: Technologist Type: Progress Notes Filed: 08/11/2024 14:08 Note Text: Radiology Service Progress Note PATIENT NAME: Katelyn Galvin DATE OF SERVICE: August 11, 2024 TIME: 2:07 PM PATIENT IDENTITY VERIFICATION COMPLETED USING TWO (2) IDENTIFIERS: Name and Date of confirmed by patient verbally. FALL SCREENING: Has the patient had 2 falls in the last year or 1 fall with injury or currently using an Ambulatory Assistive Device (Walker, Cane, Wheelchair, Crutches, etc.)? No PATIENT GENDER DATA: Female. status: : No status: N/A PATIENT RELEVANT IMPLANT DATA REVIEWED: Not Applicable PATIENT PRESENTS WITH AN IMPLANTABLE OR ATTACHED DATA WAREHOUSING MANAGER: No RADIOLOGY DEPARTMENT: Bone Density PERIPHERAL IV DATA: Not applicable SIGNED BY: Luke Lynn, RT(R) August 11, 2024 2:07 PM [facility] 05-12-2024 Note Formatting of this n ote might be different from the original. [address] [address] May 13, 2024 PID: [id number] Katelyn Galvin [address] [place] [address] Dear Ms. Galvin, We are pleased to inform you that the results of your recent breast imaging exam on 05/11/2024 are normal. Your mammogram demonstrates that you have dense breast tissue, which could hide abnormalities. Dense breast tissue, in and of itself, is a relatively common condition. Therefore, this information is not provided to cause undue concern; rather, it is to raise your awareness and promote discussion with your health care provider regarding the presence of dense breast tissue in addition to other risk factors. Early detection of cancer is very important. We also understand recommendations regarding breast cancer screening are controversial. Please discuss with your primary care provider which strategy is best for you and whether a mammogram is right for you. Your imaging studies and report will be kept on file at [facility] as part of your permanent medical record and are available for your continuing care. Thank you for allowing us to help in meeting your health care needs. Sincerely, Dr. Moreno Interpreting Radiologist [facility] (Normal over 40) [facility] 05-12-2024 Miscellaneous Notes [address] [address] May 13, 2024 PID: [id number] Katelyn Galvin [address] [place] [address] Dear Ms. Galvin, We are pleased to inform you that the results of your recent breast imaging exam on 05/11/2024 are normal. Your mammogram demonstrates that you have dense breast tissue, which could hide abnormalities. Dense breast tissue, in and of itself, is a relatively common condition. Therefore, this information is not provided to cause undue concern; rather, it is to raise your awareness and promote discussion with your health care provider regarding the presence of dense breast tissue in addition to other risk factors. Early detection of cancer is very important. We also understand recommendations regarding breast cancer screening are controversial. Please discuss with your primary care provider which strategy is best for you and whether a mammogram is right for you. Your imaging studies and report will be kept on file at [facility] as part of your permanent medical record and are available for your continuing care. Thank you for allowing us to help in meeting your health care needs. Sincerely, Dr. Moreno Interpreting Radiologist [facility] (Normal over 40) documented in this encounter [facility] 05-11-2024 History of Presen t illness Narrative Radiology Service Progress Note PATIENT NAME: Katelyn Galvin DATE OF SERVICE: May 11, 2024 TIME: 3:11 PM PATIENT IDENTITY VERIFICATION COMPLETED USING TWO (2) IDENTIFIERS: Name and Date of confirmed by patient verbally. FALL SCREENING: Has the patient had 2 falls in the last year or 1 fall with injury or currently using an Ambulatory Assistive Device (Walker, Cane, Wheelchair, Crutches, etc.)? No PATIENT GENDER DATA: Female. status: : No status: N/A PATIENT RELEVANT IMPLANT DATA REVIEWED: Not Applicable PATIENT PRESENTS WITH AN IMPLANTABLE OR ATTACHED DATA WAREHOUSING MANAGER: No RADIOLOGY DEPARTMENT: Mammography PERIPHERAL IV DATA: Not applicable SIGNED BY: RT Michael(Suzan) May 11, 2024 3:11 PM documented in this encounter [facility] 05-06-2023 History of Presen t illness Narrative Radiology Service Progress Note PATIENT NAME: Katelyn Galvin DATE OF SERVICE: May 06, 2023 TIME: [...] RT Michael(R) May 06, 2023 2:46 PM documented in this encounter [facility] 03-12-2022 Miscellaneous Notes March 12, 2022 PID: [id number] Katelyn StuartMari Saldivarlaurencejessica [address] [place] [address] [place] [address] Dear Ms. Saldivarlaurencejessica, We are pleased to inform you that the results of your recent breast imaging exam on 03/11/2022 are normal. Your mammogram demonstrates that you have dense breast tissue, which could hide abnormalities. Dense breast tissue, in and of itself, is a relatively common condition. Therefore, this information is not provided to cause undue concern; rather, it is to raise your awareness and promote discussion with your health care provider regarding the presence of dense breast tissue in addition to other risk factors. Early detection of cancer is very important. We also understand recommendations regarding breast cancer screening are controversial. Please discuss with your primary care provider which strategy is best for you and whether a mammogram is right for you. Your imaging studies and report will be kept on file at [facility] as part of your permanent medical record and are available for your continuing care. Thank you for allowing us to help in meeting your health care needs. Sincerely, Dr. Nicole Interpreting Radiologist [facility] (Normal over 40) documented in this encounter [facility] 03-11-2022 Note HNO ID: [id number] Author: DAREK Menard Service: Radiology Author Type: Technologist Type: Progress Notes Filed: 03/11/2022 2:27 PM Note Text: Radiology Service Progress Note PATIENT NAME: Katelyn Galvin DATE OF SERVICE: March 11, 2022 TIME: 2:27 PM PATIENT IDENTITY VERIFICATION COMPLETED USING TWO (2) IDENTIFIERS: Name and Date of confirmed by patient verbally. FALL SCREENING: Has the patient had 2 falls in the last year or 1 fall with injury or currently using an Ambulatory Assistive Device (Walker, Cane, Wheelchair, Crutches, etc.)? No PATIENT GENDER DATA: Female. status: : No status: NO. PATIENT RELEVANT IMPLANT DATA REVIEWED: Not Applicable RADIOLOGY DEPARTMENT: Mammography PERIPHERAL IV DATA: Not applicable SIGNED BY: DAREK Menard March 11, 2022 2:27 PM [facility] 03-[facility]2022 History of Presen t illness Narrative Radiology Service Progress Note PATIENT NAME: Katelyn Galvin DATE OF SERVICE: March 11, 2022 TIME: 2:27 PM PATIENT IDENTITY VERIFICATION COMPLETED USING TWO (2) IDENTIFIERS: Name and Date of confirmed by patient verbally. FALL SCREENING: Has the patient had 2 falls in the last year or 1 fall with injury or currently using an Ambulatory Assistive Device (Walker, Cane, Wheelchair, Crutches, etc.)? No PATIENT GENDER DATA: Female. status: : No status: NO. PATIENT RELEVANT IMPLANT DATA REVIEWED: Not Applicable RADIOLOGY DEPARTMENT: Mammography PERIPHERAL IV DATA: Not applicable SIGNED BY: DAREK Menard March 11, 2022 2:27 PM documented in this encounter [facility] 06-21-2021 Note HNO ID: [id number] Author: RT Dany(Suzan) Service: Radiology Author Type: Sharepoint Designer Developer Type: Progress Notes Filed: 06/21/2021 12:59 PM Note Text: Radiology Service Progress Note PATIENT NAME: Katelyn Galvin DATE OF SERVICE: June 21, 2021 TIME: 12:58 PM PATIENT IDENTITY VERIFICATION COMPLETED USING TWO (2) IDENTIFIERS: Name and Date of confirmed by patient verbally. FALL SCREENING: Has the patient had 2 falls in the last year or 1 fall with injury or currently using an Ambulatory Assistive Device (Walker, Cane, Wheelchair, Crutches, etc.)? No PATIENT GENDER DATA: Female. status: : No status: NO. PATIENT RELEVANT IMPLANT DATA REVIEWED: Not Applicable RADIOLOGY DEPARTMENT: General X-ray: Exam(s) Completed: Upper Extremity X-Ray(s): Fingers/Thumb, left PERIPHERAL IV DATA: Not applicable SIGNED BY: RT Dany(R) June 21, 2021 12:58 PM [facility] Reason for visit Narrative Specialty Diagnoses / Procedures Referred By Masood godoy Referred To Contact [facility] Diagnoses Encounter for screening mammogram for malignant neoplasm of breast Procedures SCREENING MAMMOGRAPHY BI 2-VIEW BREAST INC CAD Jessy Whitlock, DESIGN CHECKER.SUPPLIER QUALITY MANAGER [address] [place] [address] [facility] [address] [place] [address] Referral ID Status Reason Start Date Expiration Date Visits Requested Visits Authorized [id number] Outside PCP OON/Self Pay Override 04/11/2023 10/08/2023 1 [facility] Out[facility] Procedure (Routine) - Closed Specialty Diagnoses / Procedures Referred By Masood godoy Referred To Contact [facility] Diagnoses Encounter for screening mammogram for malignant neoplasm of breast Procedures SCREENING DIGITAL BREAST TOMOSYNTHESIS BI Jessy Whitlock, DESIGN CHECKER.SUPPLIER QUALITY MANAGER [address] [place] [address] [facility] [address] [place] [address] Referral ID Status Reason Start Date Expiration Date V isits Requested Visits Authorized [id number] Closed Patient Cleared - INN Insurance Found 04/20/2024 07/29/2025 1 1 [facility] Chief Complaint Chief Complaint Description Start Date lower back pain Preliminary chief co mplaint data, not yet signed by the author as of Instructions Instruction Description Start Date Completed Advance Directives There may be information available, but it has not been provided by the sender. No Advanced Directives Records FoundNo Advanced Directives Records FoundNo Advanced Directives Records FoundNo Advanced Directives Records Found Assessments There may be information available, but it has not been provided by the sender. Review of System There may be information available, but it has not been provided by the sender. Family History There may be information available, but it has not been provided by the sender.No Family History Records FoundNo Family History Records FoundNo Family History Records FoundNo Family History Records Found History of Present Illness There may be information available, but it has not been provided by the sender. Summary Purpose Additional Source Comments Reason for Visit (unrecogniz ed section and content) Reason For Visit Description New Complaint Preliminary reason f or visit data, not yet signed by the author as of lower back pain Specialty Diagnoses / Procedures Referred By Masood t Referred To Contact [facility] Diagnoses Encounter for general adult medical examination without abnormal findings Bone Density Procedures DXA BONE DENSITY STUDY AXIAL SKELETON BONE DENSITY ADULT 225 Jessy Whitlock, DESIGN CHECKER.SUPPLIER QUALITY MANAGER [address] [facility] [address] [place] [address] Radio Mammo Bone [facility] [address] [place] [address] Referral ID Status Reason Start Date Expiration Date V isits Requested Visits Authorized [id number] Closed Clearance Not Met - Admin/Chairm an/Director Advise to Postpone/Res chedule or Not Proceed 12/01/2023 11/30/2024 1 1 Source Comments (unrecognize d section and content) In the event this informatio n is protected by the Federal Confidentiality of Alcohol and Drug Abuse Patient Records regulations: The Federal rules restrict any use of the information to criminally investigate or prosecute any alcohol or drug abuse patient.[facility] the event this information is protected by the Federal Confidentiality of Alcohol and Drug Abuse Patient Records regulations: The Federal rules restrict any use of the information to criminally investigate or prosecute any alcohol or drug abuse patient.[facility] the event this information is protected by the Federal Confidentiality of Alcohol and Drug Abuse Patient Records regulations: The Federal rules restrict any use of the information to criminally investigate or prosecute any alcohol or drug abuse patient.[facility] the event this information is protected by the Federal Confidentiality of Alcohol and Drug Abuse Patient Records regulations: The Federal rules restrict any use of the information to criminally investigate or prosecute any alcohol or drug abuse patient.[facility] the event this information is protected by the Federal Confidentiality of Alcohol and Drug Abuse Patient Records regulations: The Federal rules restrict any use of the information to criminally investigate or prosecute any alcohol or drug abuse patient.[facility] the event this information is protected by the Federal Confidentiality of Alcohol and Drug Abuse Patient Records regulations: The Federal rules restrict any use of the information to criminally investigate or prosecute any alcohol or drug abuse patient.[facility] the event this information is protected by the Federal Confidentiality of Alcohol and Drug Abuse Patient Records regulations: The Federal rules restrict any use of the information to criminally investigate or prosecute any alcohol or drug abuse patient.[facility] Care Teams (unrecognized sec tion and content) Stapler Machine Relationship Specialty Start Date End Date Jessy Whitlock APRN.SUPPLIER QUALITY MANAGER [address] [place] [address] PCP - General Family Practice 01/22/22 Stapler Machine Relationship Specialty Start Date End Date Jessy Whitlock APRN.SUPPLIER QUALITY MANAGER [address] [place] [address] PCP - General Family Practice 01/22/22 Stapler Machine Relationship Specialty Start Date End Date Jessy Whitlock APRN.SUPPLIER QUALITY MANAGER [address] [place] [address] PCP - General Family Medicine 01/22/22 Stapler Machine Relationship Specialty Start Date End Date Jessy Whitlock APRN.MICHELLE [address] [place] [address] PCP - General Family Medicine 01/22/22 Stapler Machine Relationship Specialty Start Date End Date Jessy Whitlock APRN.SUPPLIER QUALITY MANAGER [address] [place] [address] PCP - General Family Medicine 01/22/22 Stapler Machine Relationship Specialty Start Date End Date Jessy Whitlock APRN.MICHELLE [address] [place] [address] PCP - General Family Medicine 01/22/22 Stapler Machine Relationship Specialty Start Date End Date Jessy Whitlock, DESIGN CHECKER.SUPPLIER QUALITY MANAGER [address] [place], [place] [id number] PCP - General Family Medicine 01/22/22 INFORMATION SOURCE (unrecogn ized section and content) DATE CREATED AUTHOR 03/13/2022 [facility] DATE CREATED AUTHOR AUTHOR'S ORGANIZ ATION 01/02/2024 [facility] DATE CREATED AUTHOR AUTHOR'S ORGANIZ ATION 07/15/2024 [facility] DATE CREATED AUTHOR AUTHOR'S ORGANIZ ATION 06/19/2025 [facility] FOR RECORDS PERTAINING TO PATIENTS WHO ARE OR HAVE BEEN ENROLLED IN A CHEMICAL DEPENDENCY/SUBSTANCEABUSE PROGRAM, SOME INFORMATION MAY BE OMITTED. This clinical summary was aggregated from multiple sources. Caution should be exercised in using it in the provision of clinical care. This summary normalizes information from multiple sources, and as a consequence, information in this document may materially change the coding, format and clinical context of patient data. In addition, data may be omitted in some cases. CLINICAL DECISIONS SHOULD BE BASED ON THE PRIMARY CLINICAL RECORDS. [employer] [facility]. provides no warranty or guarantee of the accuracy or completeness of information in this document.
[2025-07-12 22:10] LABS: Hematocrit 37.4 % (37-47); Hemoglobin 12.6 g/dL (12.0-15.0); Immature Granulocytes Count 0.020 X10^3/uL (0.0-0.0); Mean Corp Hgb Conc 33.7 g/dL (32-36); Mean Corpuscular Volume 91.0 fL (81-99); Mean Platelet Vol. 11.4 fl (6.2-12.0); NRBC Flagged by Analyzer 0 % (0-5); Platelet Count 269 K/mm3 (150-450); RBC Distribution Width CV 13.7 % (11.6-14.6); RBC Distribution Width SD 46.2 fl (35.1-43.9); Red Blood Count 4.11 M/mm3 (4.2-5.4); White Blood Count 7.3 K/mm3 (4.4-11.0)
[2025-07-12 22:45] LABS: AST(SGOT) 26 U/L (<=31); Alanine Aminotransfer ALT/SGPT 21 U/L (<=34); Albumin, Serum 4.5 g/dL (3.4-4.8); Alkaline Phosphatase 60 U/L (35-104); Anion Gap 14 (5-15); BUN 19 mg/dL (4-19); BUN/Creat Ratio 24.0 RATIO (10-20); Calcium,Total 9.9 mg/dL (7.6-11.0); Carbon Dioxide 22.3 mmol/L (21.0-32.0); Chloride 100 mmol/L (98-108); Cholesterol 269 mg/dL (<=200); Globulin 2.7 g/dL (2.2-4.2); Glucose 90 mg/dL (70-99); Low Density Lipoprotein Calc. 148 mg/dL; Potassium 4.2 mmol/L (3.3-5.1); Triglycerides 81 mg/dL; Very Low Density Lipoprotein 16 mg/dL (5-40); cholesterol:hdl ratio screen 2.56
== END | disposition home or self-care (01) ==
LOC: LABSPEC 21:59
PROVIDERS: PCP Nurse Practitioner; Visit Provider Nurse Practitioner
DX: Z00.00 Encounter for general adult medical examination without abnormal findings (principal)
CPT/HCPCS: 80053; 80061; 85025